=== PATIENT | male | born 1930 | race Caucasian/White ===

== ENCOUNTER 2020-05-08 17:47 | Inpatient (IN) | payer OTHER ==
[~2020-05-08] VITALS: Ht 167.6 cm; Wt 36.3 kg
[2020-05-08] MEDS ORDERED: PRAVASTATIN SOD40 MG (18:02)
[2020-05-08] MEDS ORDERED: PREDNISONE 2.5 MG (18:02)
[2020-05-08] MEDS ORDERED: FINASTERIDE5 MG (18:03)
[2020-05-08] MEDS ORDERED: ZESTRIL20 MG (18:03)
[2020-05-08] MEDS ORDERED: TIROSINT88 MCG (18:04)
[2020-05-08] MEDS ORDERED: JANUVIA100 MG (18:04)
[2020-05-08] MEDS ORDERED: MONTELUKAST SOD10 MG (18:05)
[2020-05-08] MEDS ORDERED: CETRIZINE 10 MG (18:06)
[2020-05-08] MEDS ORDERED: HORIZANT300 MG (18:07)
[2020-05-08] MEDS ORDERED: ADULT ASPIRIN81 MG (18:07)
[2020-05-08] MEDS ORDERED: FORTAMET500 MG (18:07)
[2020-05-08] MEDS ORDERED: ONDANSETRON 4 MG (18:09)
[2020-05-08] MEDS ORDERED: NYSTATIN (18:11)
[2020-05-08] MEDS ORDERED: ALBUTEROL (18:13)
[2020-05-23] MEDS ORDERED: LASIX20 MG (09:22)
[2020-05-23] MEDS ORDERED: LATANOPROST2.5 ML (09:23)
[2020-05-23] MEDS ORDERED: SUPPORT-5001 EACH (09:23)
[2020-05-23] MEDS ORDERED: PREDNISONE2.5 MG (09:23)
[2020-05-23] MEDS ORDERED: DORZOLAMIDE HCL10 ML (09:23)
[2020-05-23] MEDS ORDERED: ALBUTEROL2.5 MG/3 M (09:24)
[2020-05-23] MEDS ORDERED: ZOFRAN4 MG (09:25)
[2020-05-23] MEDS ORDERED: NYSTATIN1 EAC6 (09:26)
[2020-05-23] MEDS ORDERED: ALLER-TEC10 MG (09:27)
[2020-06-06] MEDS ORDERED: GABAPENTIN300 MG PO (13:45)
[2020-06-06] MEDS ORDERED: ST. JOSEPH ASPI81 M2 PO (13:45)
[2020-06-06] MEDS ORDERED: LASIX20 MG PO (13:45)
[2020-06-06] MEDS ORDERED: LATANOPROST2.5 ML OPHT (13:45)
[2020-06-06] MEDS ORDERED: MONTELUKAST SOD10 MG PO (13:45)
[2020-06-06] MEDS ORDERED: POM (MEDICAMENTO EN IH (13:45)
[2020-06-06] MEDS ORDERED: LEVOTHYROXINE100 MCG PO (13:45)
[2020-06-06] MEDS ORDERED: PROSCAR5 MG PO (13:45)
[2020-06-06] MEDS ORDERED: PROTEINEX-18 LI30 ML PO (13:45)
[2020-06-06] MEDS ORDERED: DORZOLAMIDE HCL10 ML OPHT (13:45)
== END 2020-06-06 19:13 | disposition home health service (06) | DRG 690 ==
LOC: ER 17:47 → SEC-K 05-09 12:15 → MEDJ 05-09 12:15 → MEDI 05-09 12:15 → MEDJ 05-09 13:40 → MEDI 05-20 17:11
PROVIDERS: ADMIT Internal Medicine; ATTEND Internal Medicine
PROC: 02HV33Z Insertion of Infusion Device into Superior Vena Cava, Percutaneous Approach (ICD-10-PCS; 2020-05-13)
PROC: 3E0436Z Introduction of Nutritional Substance into Central Vein, Percutaneous Approach (ICD-10-PCS; 2020-05-13)
PROC: 8E0ZXY6 Isolation (ICD-10-PCS; principal; 2020-05-20)
PROC: 30233N1 Transfusion of Nonautologous Red Blood Cells into Peripheral Vein, Percutaneous Approach (ICD-10-PCS; 2020-05-31)
PROC: 4A033R1 Measurement of Arterial Saturation, Peripheral, Percutaneous Approach (ICD-10-PCS; 2020-06-03)
PROC: 0DH63UZ Insertion of Feeding Device into Stomach, Percutaneous Approach (ICD-10-PCS; 2020-06-04)
DX: N39.0 Urinary tract infection, site not specified (principal); Z68.1 Body mass index [BMI] 19.9 or less, adult; J44.0 Chronic obstructive pulmonary disease with (acute) lower respiratory infection; B37.0 Candidal stomatitis; E46 Unspecified protein-calorie malnutrition; Z16.12 Extended spectrum beta lactamase (ESBL) resistance; E22.2 Syndrome of inappropriate secretion of antidiuretic hormone; E86.0 Dehydration; I10 Essential (primary) hypertension; E03.8 Other specified hypothyroidism; Z20.822 Contact with and (suspected) exposure to COVID-19; Z22.7 Latent tuberculosis; B96.29 Other Escherichia coli [E. coli] as the cause of diseases classified elsewhere; E11.649 Type 2 diabetes mellitus with hypoglycemia without coma; R13.19 Other dysphagia; R09.02 Hypoxemia